=== PATIENT | female | born 1960 | race Caucasian/White ===

== ENCOUNTER → 2017-05-31 16:28 | Outpatient (CLI) | payer BC ==
[2013-01-07 06:45] VITALS: BMI 39.0
== END | disposition home or self-care (01) ==
LOC: D.MAMMO 08:00
DX: C50.112 Malignant neoplasm of central portion of left female breast (principal)

== ENCOUNTER → 2018-06-19 18:23 | Outpatient (CLI) | payer BC ==
[2013-01-07 06:45] VITALS: BMI 39.0
== END | disposition home or self-care (01) ==
LOC: D.MAMMO 14:30
DX: Z85.3 Personal history of malignant neoplasm of breast (principal)

== ENCOUNTER 2019-07-28 07:09 | Outpatient (CLI) | payer BC ==
[2013-01-07 06:45] VITALS: BMI 39.0
== END 2019-07-28 23:59 | disposition home or self-care (01) ==
LOC: D.MAMMO 07:09
PROVIDERS: ATTEND Nurse Practitioner Family
DX: R92.8 Other abnormal and inconclusive findings on diagnostic imaging of breast (principal)

== ENCOUNTER 2021-02-01 13:30 | Outpatient (CLI) | payer BC ==
[2013-01-07 06:45] VITALS: BMI 39.0
== END 2021-02-01 23:59 | disposition home or self-care (01) ==
LOC: D.MAMMO 13:30
PROVIDERS: ATTEND Nurse Practitioner Family
DX: Z12.31 Encounter for screening mammogram for malignant neoplasm of breast (principal)